=== PATIENT | female | born 1940 | race Caucasian/White ===

== ENCOUNTER → 2017-12-21 | Outpatient (CLI) | payer OTHER ==
[~2017-12-21] MED LIST: CALCIUM 600 +1 EAC1 PO; CIPROFLOXACIN500 M1 PO; DAILY MULTIPLE1 EACH PO; ESTRACE0.5 MG; FLONASE 0.05%50 MCG NASAL; PRILOSEC20 MG PO; PYRIDIUM200 MG PO; VITAMINC500 PO; ZOCOR 20 MG TAB20 M1
== END ==
LOC: M.RAD 12-09 07:42
DX: Z12.31 Encounter for screening mammogram for malignant neoplasm of breast (principal); M81.0 Age-related osteoporosis without current pathological fracture; M85.88 Other specified disorders of bone density and structure, other site; Z78.0 Asymptomatic menopausal state

== ENCOUNTER → 2019-11-13 | Outpatient (CLI) | payer OTHER ==
--- NOTE | 2019-11-15 10:02 | 24HR ---
[place] [address] HOLTER MONITOR REPORT Name: DOMINGO SOUZA Room: [facility]#: [id number] Admission: 11/13/19 Attend Phys: Takedria. CAMDEN Mello Discharge: Date of : 44 Date of Service: 11/14/19 1146 Report #: [id number] THIS REPORT FOR: //name// [facility] Test Date: 2019-11-14 Test Time: 11:46:19 Pat Name: DOMINGO SOUZA Department: Room: Gender: F Histology Manager: : 1940 Requested By: Takedria. Quiroz Order Number: [id number] Chantell MD: Shahzad Stark Interpretive Statements 1. sinus rhythm with sinus bradycardia and tachycardia 2. rare pvc 3. 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 no diary submitted with holter Electronically Signed On 11-15-2019 10:01:58 STATEMENT SERVICES REPRESENTATIVE by Shahzad Stark [email or web address] <ELECTRONICALLY SIGNED> By: Shahzad Stark MD, [facility] 11/15/19 1001 1146 1146 Shahzad Stark MD, FACC /EPI
== END ==
LOC: M.CRD 09:53
DX: R94.31 Abnormal electrocardiogram [ECG] [EKG] (principal); R42 Dizziness and giddiness

== ENCOUNTER → 2019-11-28 | Outpatient (CLI) | payer OTHER | LOC: M.RAD 07:01 | DX: Z12.31 Encounter for screening mammogram for malignant neoplasm of breast (principal) ==